=== PATIENT | male | born 1960 ===

== ENCOUNTER 2025-06-28 06:54 | Outpatient (CLI) | payer OTHER, SELFPAY ==
--- NOTE | 2025-06-28 07:15 | CRLHL7_ITS ---
For Patients: As a result of the Century Cures Act, medical imaging exams and procedure reports are released immediately into your electronic medical record. You may view this report before your referring provider. If you have questions, please contact your health care provider. Indication: Low back pain. Technique: Multiplanar, multisequence MRI of the lumbar spine was performed without intravenous contrast. Comparison: None relevant available. Findings: There are 5 lumbar type vertebral segments identified. The vertebral body heights are maintained without evidence of fracture. There is no discrete T1 hypointense marrow infiltrating process. The conus medullaris terminates at T12, normal. Cauda equina appears unremarkable. T12-L1: Disc degeneration. Minimal disc bulge without spinal canal or neural foraminal narrowing. L1-2: Disc degeneration. Minimal disc bulge without spinal canal or neural foraminal narrowing. L2-3: Disc degeneration. Minimal disc bulge without spinal canal narrowing. Mild left neural foraminal narrowing. Mild facet arthropathy. L3-4: Disc degeneration. Small central annular fissure. No spinal canal narrowing. Mild neural foraminal narrowing. Mild facet arthropathy. L4-5: Moderate disc degeneration. No spinal canal narrowing. Moderate right and [id number] left neural foraminal narrowing. Mild facet arthropathy. L5-S1: Disc degeneration. No spinal canal narrowing. Mild right neural foraminal narrowing. Mild facet arthropathy. Mild sacroiliac joint osteoarthritis. Impression: 1. At L4-5, moderate right and [id number]-nbhfskge left neural foraminal narrowing. 2. Mild spondylosis at the remaining lumbar levels. Dictated by Uri Bueno MD @ 06/28/2025 12:00:01 PM (Electronically Signed)
== END 2025-06-28 06:55 | disposition home or self-care (01) ==
PROVIDERS: Visit Provider Family Medicine
DX: M51.26 Other intervertebral disc displacement, lumbar region (principal); M47.896 Other spondylosis, lumbar region
CPT/HCPCS: 72148